=== PATIENT | male | born 1940 | race Caucasian/White ===

== ENCOUNTER 2016-08-19 13:43 | Inpatient (IN) | payer OTHER ==
[~2016-08-19] VITALS: Ht 167.6 cm; Wt 89.2 kg
[~2016-08-19 13:43] MED LIST: ASPI-231 PO; CLOP75TA28 PO; GLIP-115 PO; LEVO75TA6 PO; LISI10TA6 PO; METF-316 PO; METO25TA5 PO; OMEP20CA5 PO; SIMV-8 PO; nitrostat
[2016-08-19 14:33] LABS: Basophils # (auto) 0 uL; Basophils % (auto) 0.4 % (0.0-2.0); DEFINITIVE VIEW TRANSMISSION; Eosinophils # (auto) 0.1 uL; Eosinophils % (auto) 0.6 % (0.0-7.0); Hematocrit 34.8 % (41.0-53.0); Mean Corpuscular Hemoglobin 27.5 pg (28.0-32.0); Mean Corpuscular Hgb Conc. 31.5 g/dL (32.0-36.0); Mean Corpuscular Volume 87.1 fL (80.0-100.0); Mean Platelet Volume 7.9 fL (7.4-10.4); Monocytes # (auto) 0.5 uL; Platelet Count (auto) 410 10^3/uL (140-450); Red Cell Distribution Width 19.4 % (11.6-16.0); White Blood Cell 9.6 10^3/uL (4.4-10.8)
[2016-08-19 14:43] LABS: Albumin 3.4 g/dL (3.4-5.0); Anion Gap 13 (5-15); Calcium 7.9 mg/dL (8.5-10.1); Carbon Dioxide 21 mmol/L (21-32); Chloride 105 mmol/L (98-107); Glucose 100 mg/dL (74-106); Magnesium 2.1 mg/dL (1.6-2.6); Potassium 3.6 mmol/L (3.5-5.1); Sodium 139 mmol/L (136-145)
[2016-08-19 14:46] LABS: Alkaline Phosphatase 136 U/L (45-117); Aspartate Aminotransferase 24 U/L (15-37); BUN/Creatinine Ratio 19.7; Bilirubin, Total 0.6 mg/dL (0.2-1.0); Blood Urea Nitrogen 24 mg/dL (7-18); GFR African American 75 mL/min; GFR Non-African American 62 mL/min
[2016-08-19 16:10] LABS: Partial Thromboplastin Time 26.6 sec (22.64-33.71)
[2016-08-19 16:23] LABS: B-Type Natriuretic Peptide 3039.27 pg/mL (0-100); Temperature: 23.3 C (20.0-25.0)
[2016-08-19 16:36] LABS: INR 1.29 (0.9-1.15); Prothrombin Time 13.3 sec (9.37-12.3)
[2016-08-19] MEDS ORDERED: FUROSEMIDE 40 MG/4 ML VIAL IV ONE (17:00)
[2016-08-19] MEDS ORDERED: MORPHINE SULF INJ 2 MG/ML SYRINGE 1ML IV PRN ×2 (17:30)
[2016-08-19] MEDS ORDERED: TEMAZEPAM 15 MG CAP PO PRN (17:30)
[2016-08-19] MEDS ORDERED: LORazepam 0.5 MG TAB PO PRN (17:30)
[2016-08-19] MEDS ORDERED: PROMETHAZINE HCL 25 MG/ML 1ML IV PRN (17:30)
[2016-08-19] MEDS ORDERED: DEXTROSE (50%) 50ML SYRG IV PRN (17:30)
[2016-08-19] MEDS ORDERED: NITROGLYCERIN 0.4 MG SL TAB SL PRN (17:30)
[2016-08-19] MEDS ORDERED: LACTULOSE 20Gm/30ML SOLN PO PRN (17:30)
[2016-08-19] MEDS ORDERED: ENOXAPARIN SOD 40 MG/0.4 ML SYRINGE SC ONE (17:34)
[2016-08-19 18:55] LABS: Anisocytosis Moderate; Large Platelets FEW; Ovalocytes FEW; Platelet Estimate Adequate
[2016-08-19 18:56] LABS: Stomatocytes Few
[2016-08-19 20:00] VITALS: BP 124/83
[2016-08-19 20:56] LABS: Urine RBC None Seen /hpf (0 - 3)
[2016-08-19 21:12] LABS: Urine Bilirubin Negative (Negative); Urine Blood Negative /uL (Negative); Urine Color Colorless (Yellow); Urine Glucose Normal (Normal); Urine Hyaline Cast FEW /lpf (0 - 2); Urine Ketone Negative (Negative); Urine Nitrite Negative (Negative); Urine Urobilinogen Normal (Negative)
[2016-08-19] MEDS: ATORVASTATIN 20 MG TAB PO SCH (21:54)
[2016-08-19] MEDS: SODIUM CHLOR 0.9% PF (SALINE LOCK) 10ML VIAL IV SCH (21:55)
[2016-08-19] MEDS: CARVEDILOL 3.125 MG TAB PO SCH (21:55)
[2016-08-19] MEDS: InsuLIN REG 1unit/0.01ml Soln (100units/ml) SC SCH (22:00)
[2016-08-19] MEDS ORDERED: glipiZIDE 5 MG TAB PO SCH (22:00)
[2016-08-19] MEDS: ACCU-CHEK COMFORT CURVE STRIP VI SCH (22:03)
[2016-08-19] MEDS ORDERED: METF-312 PO (22:47)
[2016-08-19] MEDS ORDERED: LORA-352 PO (22:47)
[2016-08-19] MEDS: HYDROcodone-ACET 5/325MG TAB PO PRN (23:15)
[2016-08-20 05:46] VITALS: BP 112/75
[2016-08-20 05:59] LABS: Albumin 3.2 g/dL (3.4-5.0); BUN/Creatinine Ratio 19.5; Bilirubin, Total 0.8 mg/dL (0.2-1.0); Calcium 7.9 mg/dL (8.5-10.1); Potassium 3.5 mmol/L (3.5-5.1); Total Protein 6.3 g/dL (6.4-8.2)
[2016-08-20] MEDS: SODIUM CHLOR 0.9% PF (SALINE LOCK) 10ML VIAL IV SCH ×3 (06:13→21:54)
[2016-08-20] MEDS: LEVOTHYROXINE SODIUM 25 MCG TAB PO SCH (06:13)
[2016-08-20] MEDS: ACCU-CHEK COMFORT CURVE STRIP VI SCH ×4 (06:23→21:55)
[2016-08-20] MEDS: InsuLIN REG 1unit/0.01ml Soln (100units/ml) SC SCH ×4 (06:23→21:55)
[2016-08-20] MEDS: glipiZIDE 5 MG TAB PO SCH ×2 (06:24→17:00)
[2016-08-20 06:26] LABS: B-Type Natriuretic Peptide 3603.21 pg/mL (0-100)
[2016-08-20 09:00] VITALS: BP 119/83
[2016-08-20] MEDS ORDERED: ENOXAPARIN SOD 40 MG/0.4 ML SYRINGE SC SCH (10:00)
[2016-08-20] MEDS ORDERED: OMEPRAZOLE 20MG/10ML ORAL SUSP PO SCH (10:00)
[2016-08-20] MEDS ORDERED: FUROSEMIDE 40 MG/4 ML VIAL IV SCH (10:00)
[2016-08-20] MEDS: NITROGLYCERIN 0.2MG/HR TOPICAL PATCH TD SCH (10:02)
[2016-08-20] MEDS: ASPirin 81 mg TAB PO SCH (10:03)
[2016-08-20] MEDS: CLOPIDOGREL BISULFATE 75 MG TAB PO SCH (10:03)
[2016-08-20] MEDS: CARVEDILOL 3.125 MG TAB PO SCH ×2 (10:04→21:55)
[2016-08-20] MEDS: POTASSIUM CHL 20 Meq TABLET PO SCH (10:04)
[2016-08-20] MEDS: LISINOPRIL 10 MG TAB PO SCH (10:04)
[2016-08-20 13:00] VITALS: BP 107/70
[2016-08-20] MEDS: FUROSEMIDE 40 MG/4 ML VIAL IV SCH ×2 (15:38→21:54)
[2016-08-20 16:48] VITALS: BP 113/82
[2016-08-20] MEDS ORDERED: IOHEXOL 350 MG/ML 100ML IJ ONE (17:08)
[2016-08-20] MEDS ORDERED: FURO40TA PO (17:28)
[2016-08-20] MEDS: ACETAMINOPHEN 500 MG TAB PO PRN (19:48)
[2016-08-20] MEDS ORDERED: WARFARIN SODIUM 5 MG TAB PO ONE (21:00)
[2016-08-20] MEDS: ATORVASTATIN 20 MG TAB PO SCH (21:55)
[2016-08-20] MEDS: ENOXAPARIN SOD 100 MG/1 ML SYRINGE SC SCH (21:55)
[2016-08-20 22:21] VITALS: BP 105/65
[2016-08-20] MEDS: HYDROcodone-ACET 5/325MG TAB PO PRN (23:09)
[2016-08-21 05:38] VITALS: BP 100/67
[2016-08-21 05:44] LABS: Basophils # (auto) 0.1 uL; Basophils % (auto) 0.6 % (0.0-2.0); DEFINITIVE VIEW TRANSMISSION; Eosinophils # (auto) 0.1 uL; Eosinophils % (auto) 1.4 % (0.0-7.0); Hematocrit 32.1 % (41.0-53.0); Hemoglobin 10.1 g/dL (13.5-17.5); Lymphocytes # (auto) 1.2 uL; Mean Corpuscular Hemoglobin 27.3 pg (28.0-32.0); Mean Corpuscular Hgb Conc. 31.5 g/dL (32.0-36.0); Mean Corpuscular Volume 86.6 fL (80.0-100.0); Monocytes # (auto) 0.5 uL; Monocytes % (auto) 5.5 % (0.0-12.0); Neutrophils # (auto) 6.6 uL; Neutrophils % (auto) 78.5 % (37.0-80.0); Platelet Count (auto) 321 10^3/uL (140-450); Red Cell Distribution Width 19.6 % (11.6-16.0); White Blood Cell 8.4 10^3/uL (4.4-10.8)
[2016-08-21 06:00] LABS: Partial Thromboplastin Time 33.5 sec (22.64-33.71)
[2016-08-21 06:04] LABS: Potassium 3.3 mmol/L (3.5-5.1)
[2016-08-21] MEDS: FUROSEMIDE 40 MG/4 ML VIAL IV SCH ×3 (06:10→21:58)
[2016-08-21] MEDS: SODIUM CHLOR 0.9% PF (SALINE LOCK) 10ML VIAL IV SCH ×3 (06:10→21:58)
[2016-08-21 06:11] LABS: BUN/Creatinine Ratio 23.5; Calcium 8.1 mg/dL (8.5-10.1)
[2016-08-21 06:14] LABS: INR 1.3 (0.9-1.15); Prothrombin Time 13.4 sec (9.37-12.3)
[2016-08-21] MEDS: InsuLIN REG 1unit/0.01ml Soln (100units/ml) SC SCH ×4 (06:53→21:58)
[2016-08-21] MEDS: ACCU-CHEK COMFORT CURVE STRIP VI SCH ×4 (06:53→21:58)
[2016-08-21] MEDS: glipiZIDE 5 MG TAB PO SCH ×2 (06:53→17:00)
[2016-08-21] MEDS: LEVOTHYROXINE SODIUM 25 MCG TAB PO SCH (06:54)
[2016-08-21 09:00] VITALS: BP 100/66
[2016-08-21] MEDS: CLOPIDOGREL BISULFATE 75 MG TAB PO SCH (09:04)
[2016-08-21] MEDS: ASPirin 81 mg TAB PO SCH (09:04)
[2016-08-21] MEDS: PANTOPRAZOLE 40 MG TAB PO SCH (09:04)
[2016-08-21] MEDS: POTASSIUM CHL 20 Meq TABLET PO SCH (09:04)
[2016-08-21] MEDS: NITROGLYCERIN 0.2MG/HR TOPICAL PATCH TD SCH (09:05)
[2016-08-21] MEDS: ENOXAPARIN SOD 100 MG/1 ML SYRINGE SC SCH ×2 (09:06→21:57)
[2016-08-21] MEDS: LISINOPRIL 10 MG TAB PO SCH (09:06)
[2016-08-21] MEDS: CARVEDILOL 3.125 MG TAB PO SCH ×2 (09:07→21:58)
[2016-08-21 13:00] VITALS: BP 104/54
[2016-08-21 17:00] VITALS: BP 120/68
[2016-08-21] MEDS ORDERED: WARFARIN SODIUM 2.5 MG TAB PO ONE (17:00)
[2016-08-21] MEDS: ATORVASTATIN 20 MG TAB PO SCH (21:57)
[2016-08-21 22:00] VITALS: BP 107/65
[2016-08-22 04:55] VITALS: BP 106/66
[2016-08-22] MEDS: SODIUM CHLOR 0.9% PF (SALINE LOCK) 10ML VIAL IV SCH ×3 (06:07→21:58)
[2016-08-22] MEDS: FUROSEMIDE 40 MG/4 ML VIAL IV SCH ×3 (06:07→21:58)
[2016-08-22] MEDS: LEVOTHYROXINE SODIUM 25 MCG TAB PO SCH (06:09)
[2016-08-22] MEDS: ACCU-CHEK COMFORT CURVE STRIP VI SCH ×4 (06:15→21:59)
[2016-08-22] MEDS: glipiZIDE 5 MG TAB PO SCH ×2 (06:16→16:43)
[2016-08-22] MEDS: InsuLIN REG 1unit/0.01ml Soln (100units/ml) SC SCH ×4 (06:16→21:59)
[2016-08-22 06:30] LABS: BUN/Creatinine Ratio 21.5; Magnesium 1.9 mg/dL (1.6-2.6); Phosphorus 3.8 mg/dL (2.5-4.90); Potassium 3.5 mmol/L (3.5-5.1)
[2016-08-22 06:35] LABS: Basophils # (auto) 0 uL; Basophils % (auto) 0.3 % (0.0-2.0); DEFINITIVE VIEW TRANSMISSION; Eosinophils # (auto) 0.1 uL; Eosinophils % (auto) 1.1 % (0.0-7.0); Hematocrit 31.5 % (41.0-53.0); Lymphocytes # (auto) 1.1 uL; Lymphocytes % (auto) 11.5 % (10.0-50.0); Mean Corpuscular Hemoglobin 27.4 pg (28.0-32.0); Mean Corpuscular Hgb Conc. 31.7 g/dL (32.0-36.0); Mean Corpuscular Volume 86.5 fL (80.0-100.0); Mean Platelet Volume 7.9 fL (7.4-10.4); Monocytes # (auto) 0.5 uL; Monocytes % (auto) 5.1 % (0.0-12.0); Neutrophils # (auto) 7.6 uL; Platelet Count (auto) 338 10^3/uL (140-450); Red Cell Distribution Width 19.6 % (11.6-16.0); White Blood Cell 9.3 10^3/uL (4.4-10.8)
[2016-08-22 06:56] LABS: INR 1.36 (0.9-1.15); Partial Thromboplastin Time 35.9 sec (22.64-33.71)
[2016-08-22 09:00] VITALS: BP 99/55
[2016-08-22] MEDS: ASPirin 81 mg TAB PO SCH (09:25)
[2016-08-22] MEDS: CLOPIDOGREL BISULFATE 75 MG TAB PO SCH (09:25)
[2016-08-22] MEDS: PANTOPRAZOLE 40 MG TAB PO SCH (09:26)
[2016-08-22] MEDS: POTASSIUM CHL 20 Meq TABLET PO SCH (09:26)
[2016-08-22] MEDS: CARVEDILOL 3.125 MG TAB PO SCH ×2 (09:26→21:59)
[2016-08-22] MEDS: ACETAMINOPHEN 500 MG TAB PO PRN (09:26)
[2016-08-22] MEDS: LISINOPRIL 10 MG TAB PO SCH (09:27)
[2016-08-22] MEDS: ENOXAPARIN SOD 100 MG/1 ML SYRINGE SC SCH ×2 (09:27→21:59)
[2016-08-22] MEDS: NITROGLYCERIN 0.2MG/HR TOPICAL PATCH TD SCH (09:27)
[2016-08-22 13:00] VITALS: BP 104/57
[2016-08-22 16:43] VITALS: BP 106/69
[2016-08-22] MEDS ORDERED: WARFARIN SODIUM 2.5 MG TAB PO ONE (17:00)
[2016-08-22 21:47] VITALS: BP 99/61
[2016-08-22] MEDS: ATORVASTATIN 20 MG TAB PO SCH (21:59)
[2016-08-23 05:11] VITALS: BP 104/63
[2016-08-23 05:21] LABS: Basophils # (auto) 0 uL; Basophils % (auto) 0.1 % (0.0-2.0); Eosinophils # (auto) 0.1 uL; Eosinophils % (auto) 1.5 % (0.0-7.0); Hematocrit 33.5 % (41.0-53.0); Hemoglobin 10.6 g/dL (13.5-17.5); Lymphocytes # (auto) 0.8 uL; Lymphocytes % (auto) 8.8 % (10.0-50.0); Mean Corpuscular Hemoglobin 27.3 pg (28.0-32.0); Mean Corpuscular Hgb Conc. 31.6 g/dL (32.0-36.0); Mean Corpuscular Volume 86.2 fL (80.0-100.0); Mean Platelet Volume 7.8 fL (7.4-10.4); Monocytes # (auto) 0.4 uL; Monocytes % (auto) 4.8 % (0.0-12.0); Neutrophils # (auto) 7.6 uL; Neutrophils % (auto) 84.8 % (37.0-80.0); Platelet Count (auto) 332 10^3/uL (140-450); Red Cell Distribution Width 18.7 % (11.6-16.0); White Blood Cell 8.9 10^3/uL (4.4-10.8)
[2016-08-23 05:36] LABS: Partial Thromboplastin Time 40.1 sec (22.64-33.71)
[2016-08-23 05:54] LABS: INR 2.02 (0.9-1.15); Prothrombin Time 20.8 sec (9.37-12.3)
[2016-08-23] MEDS: SODIUM CHLOR 0.9% PF (SALINE LOCK) 10ML VIAL IV SCH ×2 (06:04→13:50)
[2016-08-23] MEDS: LEVOTHYROXINE SODIUM 25 MCG TAB PO SCH (06:05)
[2016-08-23] MEDS: FUROSEMIDE 40 MG/4 ML VIAL IV SCH ×2 (06:08→13:49)
[2016-08-23] MEDS: glipiZIDE 5 MG TAB PO SCH ×2 (06:08→17:00)
[2016-08-23] MEDS: InsuLIN REG 1unit/0.01ml Soln (100units/ml) SC SCH ×3 (06:14→17:00)
[2016-08-23] MEDS: ACCU-CHEK COMFORT CURVE STRIP VI SCH ×3 (06:14→17:11)
[2016-08-23 08:00] VITALS: BP 103/67
[2016-08-23 09:00] VITALS: BP 103/67
[2016-08-23] MEDS: POTASSIUM CHL 20 Meq TABLET PO SCH (09:29)
[2016-08-23] MEDS: CLOPIDOGREL BISULFATE 75 MG TAB PO SCH (09:30)
[2016-08-23] MEDS: CARVEDILOL 3.125 MG TAB PO SCH (09:30)
[2016-08-23] MEDS: ENOXAPARIN SOD 100 MG/1 ML SYRINGE SC SCH (09:30)
[2016-08-23] MEDS: ASPirin 81 mg TAB PO SCH (09:30)
[2016-08-23] MEDS: PANTOPRAZOLE 40 MG TAB PO SCH (09:30)
[2016-08-23] MEDS: NITROGLYCERIN 0.2MG/HR TOPICAL PATCH TD SCH (09:31)
[2016-08-23] MEDS: LISINOPRIL 10 MG TAB PO SCH (09:31)
[2016-08-23 13:00] VITALS: BP 94/59
[2016-08-23] MEDS: ACETAMINOPHEN 500 MG TAB PO PRN (13:50)
[2016-08-23 16:55] VITALS: BP 121/65
[2016-08-23 17:00] VITALS: BP 121/65
[2016-08-23] MEDS ORDERED: WARFARIN SODIUM 2.5 MG TAB PO ONE (17:00)
== END 2016-08-23 19:00 | disposition home health service (06) | DRG 291 ==
LOC: ER 13:43 → WEST WING 13:44 → TELE-WESTW 19:55
PROVIDERS: ADMIT Internal Medicine; ATTEND Internal Medicine
DX: I11.0 Hypertensive heart disease with heart failure (principal); I26.99 Other pulmonary embolism without acute cor pulmonale; I50.43 Acute on chronic combined systolic (congestive) and diastolic (congestive) heart failure; I42.9 Cardiomyopathy, unspecified; I44.7 Left bundle-branch block, unspecified; E03.9 Hypothyroidism, unspecified; D63.8 Anemia in other chronic diseases classified elsewhere; E11.9 Type 2 diabetes mellitus without complications; E66.9 Obesity, unspecified; K21.9 Gastro-esophageal reflux disease without esophagitis; E78.5 Hyperlipidemia, unspecified; I25.10 Atherosclerotic heart disease of native coronary artery without angina pectoris; Z86.73 Personal history of transient ischemic attack (TIA), and cerebral infarction without residual deficits; Z79.82 Long term (current) use of aspirin; I25.2 Old myocardial infarction; Z95.5 Presence of coronary angioplasty implant and graft; Z82.49 Family history of ischemic heart disease and other diseases of the circulatory system; Z83.3 Family history of diabetes mellitus
CPT/HCPCS: 36415; 71010; 71275; 80048; 80053; 80061; 81001; 82550; 82962; 83036; 83735; 83880; 84100; 84443; 84484; 85025; 85379; 85610; 85652; 85730; 86141; 93005; 93970; 94761; 96372; 96374

== ENCOUNTER 2017-01-12 15:09 | Observation (INO) | payer OTHER ==
[~2017-01-12] VITALS: Ht 170.2 cm; Wt 84.4 kg
[~2017-01-12 15:09] MED LIST changes: +FURO40TA PO; -GLIP-115 PO; +LORA-352 PO; -METF-316 PO; +METF-372 PO; -OMEP20CA5 PO; +OMEP20CA74 PO; -nitrostat
[2017-01-12] MEDS ORDERED: SODIUM CHLORIDE 0.9% 1,000 ML IVB ONE (15:32)
[2017-01-12] MEDS ORDERED: HYDROmorphone HCL 2 MG/ML VL IV ONE (15:45)
[2017-01-12] MEDS ORDERED: ONDANSETRON HCL 4 MG/2 ML VIAL IV ONE (15:45)
[2017-01-12] MEDS ORDERED: KETOROLAC TROMETH 30 MG/ML 1ML VIAL IV ONE (15:45)
[2017-01-12 16:37] LABS: Basophils # (auto) 0 uL; Basophils % (auto) 0.4 % (0.0-2.0); CONDITION Y; Eosinophils # (auto) 0.1 uL; Eosinophils % (auto) 1.8 % (0.0-7.0); Hematocrit 35.5 % (41.0-53.0); Hemoglobin 11.7 g/dL (13.5-17.5); Lymphocytes # (auto) 0.9 uL; Lymphocytes % (auto) 15.8 % (10.0-50.0); Mean Corpuscular Hemoglobin 31.2 pg (28.0-32.0); Mean Corpuscular Volume 94.3 fL (80.0-100.0); Monocytes # (auto) 0.4 uL; Monocytes % (auto) 7.7 % (0.0-12.0); Neutrophils % (auto) 74.3 % (37.0-80.0); Platelet Count (auto) 237 10^3/uL (140-450); Red Cell Distribution Width 18.3 % (11.6-16.0); White Blood Cell 5.4 10^3/uL (4.4-10.8)
[2017-01-12 16:46] LABS: INR 2.97 (0.9-1.15); Partial Thromboplastin Time 37.2 sec (22.64-33.71); Prothrombin Time 32.7 sec (9.37-12.3)
[2017-01-12 17:19] LABS: B-Type Natriuretic Peptide 920.04 pg/mL (0-100)
[2017-01-12 17:20] LABS: Temperature: 23.3 C (20.0-25.0)
[2017-01-12 17:22] LABS: Albumin 3.6 g/dL (3.4-5.0); Alkaline Phosphatase 94 U/L (45-117); Amylase 61 U/L (25-115); Anion Gap 10 (5-15); Aspartate Aminotransferase 23 U/L (15-37); BUN/Creatinine Ratio 16.5; Bilirubin, Total 0.5 mg/dL (0.2-1.0); Blood Urea Nitrogen 22 mg/dL (7-18); Calcium 8.1 mg/dL (8.5-10.1); Carbon Dioxide 27 mmol/L (21-32); Chloride 100 mmol/L (98-107); GFR African American 68 mL/min; GFR Non-African American 56 mL/min; Glucose 78 mg/dL (74-106); Magnesium 1.3 mg/dL (1.6-2.6); Potassium 3.8 mmol/L (3.5-5.1); Sodium 137 mmol/L (136-145); Total Protein 7.5 g/dL (6.4-8.2)
[2017-01-12 17:27] VITALS: BP 118/69
== END 2017-01-12 20:19 | disposition home or self-care (01) | DRG 563 ==
LOC: EDBD 15:09 → ER 15:09 → OVERFLOW 15:35 → ER 20:19
PROVIDERS: ADMIT Family Medicine; ATTEND Family Medicine
DX: S29.012A Strain of muscle and tendon of back wall of thorax, initial encounter (principal); I11.0 Hypertensive heart disease with heart failure; I50.9 Heart failure, unspecified; E11.9 Type 2 diabetes mellitus without complications; I25.10 Atherosclerotic heart disease of native coronary artery without angina pectoris; D71 Functional disorders of polymorphonuclear neutrophils; K80.20 Calculus of gallbladder without cholecystitis without obstruction; I25.2 Old myocardial infarction; K57.50 Diverticulosis of both small and large intestine without perforation or abscess without bleeding; I71.4 Abdominal aortic aneurysm, without rupture; Y93.89 Activity, other specified; X58.XXXA Exposure to other specified factors, initial encounter; Y92.89 Other specified places as the place of occurrence of the external cause; Y99.8 Other external cause status; Z86.73 Personal history of transient ischemic attack (TIA), and cerebral infarction without residual deficits; Z82.49 Family history of ischemic heart disease and other diseases of the circulatory system
CPT/HCPCS: 36415; 71020; 74176; 76775; 80053; 82150; 83690; 83735; 83880; 84484; 85025; 85610; 85730; 93005; 96361; 96374; 96375; 99285; G0378; J1885; J2405

== ENCOUNTER 2017-01-19 17:22 | Emergency (ER) | payer OTHER ==
[~2017-01-19] VITALS: Ht 172.7 cm; Wt 113.7 kg
[2017-01-19] MEDS ORDERED: METHOCARBAMOL 500 MG TAB PO ONE (19:15)
[2017-01-19] MEDS ORDERED: HYDROmorphone HCL 2 MG/ML VL IV ONE (19:15)
[2017-01-19] MEDS ORDERED: ONDANSETRON HCL 4 MG/2 ML VIAL IV ONE (19:15)
[2017-01-19] MEDS ORDERED: PROMETHAZINE HCL 25 MG/ML 1ML IV ONE (20:00)
[2017-01-19 21:26] VITALS: BP 120/85
== END 2017-01-19 21:28 | disposition home or self-care (01) ==
LOC: ER 17:22 → EDBD 17:22 → ER 21:28
DX: G89.29 Other chronic pain (principal); M54.5 Low back pain; I25.10 Atherosclerotic heart disease of native coronary artery without angina pectoris; I50.9 Heart failure, unspecified; E11.9 Type 2 diabetes mellitus without complications; I11.0 Hypertensive heart disease with heart failure; I25.2 Old myocardial infarction; E07.9 Disorder of thyroid, unspecified; Z79.899 Other long term (current) drug therapy
CPT/HCPCS: 93005; 96374; 96375; 99284; J1170; J2405; J2550

== ENCOUNTER 2017-07-05 06:47 | Inpatient (IN) | payer OTHER ==
[~2017-07-05] VITALS: Ht 172.7 cm; Wt 89.1 kg
[~2017-07-05 06:47] MED LIST changes: -ASPI-231 PO; +ASPI-266 PO; -FURO40TA PO; +FURO40TA4 PO; -LORA-352 PO; +LORA10CA12 PO; -METF-372 PO; +METF-490 PO; +WARF5TAB PO
[2017-07-05] MEDS ORDERED: VANCOMYCIN HCL 1000 MG VL ONE (07:25)
[2017-07-05] MEDS ORDERED: fentaNYL CITRATE 100 MCG/2 ML VL ONE (07:25)
[2017-07-05] MEDS ORDERED: BACITRACIN INJ 50000 UNIT VIAL ONE (07:26)
[2017-07-05] MEDS ORDERED: VANCOMYCIN 1GM/250ML 250 ML IV ONE ×2 (07:26→09:03)
[2017-07-05] MEDS ORDERED: MIDAZOLAM HCL 1MG/1ML-2 ML VIAL ONE (07:26)
[2017-07-05] MEDS ORDERED: IOHEXOL 350 MG/ML 100ML IJ ONE ×2 (07:29→08:06)
[2017-07-05] MEDS ORDERED: LIDOCAINE 2%HCL (LOCAL ANESTH.) INJ 20ML MDV ONE (07:30)
[2017-07-05] MEDS ORDERED: ceFAZolin 1GM/50ML 50 ML IV ONE ×2 (09:41→09:44)
[2017-07-05] MEDS ORDERED: NITROGLYCERIN 0.4 MG SL TAB SL PRN (10:15)
[2017-07-05] MEDS ORDERED: LORazepam 0.5 MG TAB PO PRN (10:15)
[2017-07-05] MEDS ORDERED: ACETAMINOPHEN 325 MG TAB PO PRN (10:15)
[2017-07-05] MEDS ORDERED: MORPHINE SULFATE 4 MG/ML SYR/VIAL IV PRN (10:15)
[2017-07-05] MEDS ORDERED: HYDROcodone-ACET 5/325MG TAB PO PRN (10:15)
[2017-07-05] MEDS ORDERED: LORATADINE 10 MG TAB PO PRN (10:45)
[2017-07-05 14:45] VITALS: BP 118/75
[2017-07-05 15:29] VITALS: BP 118/75
[2017-07-05] MEDS: ceFAZolin 2GM/100ML 100 ML IV SCH ×2 (15:54→21:53)
[2017-07-05 16:28] VITALS: BP 114/71
[2017-07-05] MEDS ORDERED: PATIENTS OWN MEDICATION (Simvastatin 1 TAB) PO SCH (18:00)
[2017-07-05] MEDS: FUROSEMIDE 40 MG TAB PO SCH (18:01)
[2017-07-05 21:42] VITALS: BP 104/65
[2017-07-05] MEDS: METOPROLOL TARTRATE 25 MG TAB PO SCH (21:55)
[2017-07-05] MEDS ORDERED: PRAVASTATIN SODIUM 20 MG TAB PO SCH (22:00)
[2017-07-06] MEDS: ceFAZolin 2GM/100ML 100 ML IV SCH (04:00)
[2017-07-06 04:37] VITALS: BP 108/76
[2017-07-06] MEDS: FUROSEMIDE 40 MG TAB PO SCH ×2 (06:11→06:13)
[2017-07-06] MEDS ORDERED: LEVOTHYROXINE SODIUM 25 MCG TAB PO SCH (07:00)
[2017-07-06 09:00] VITALS: BP 109/69
[2017-07-06] MEDS: METOPROLOL TARTRATE 25 MG TAB PO SCH (09:32)
[2017-07-06] MEDS ORDERED: OMEPRAZOLE 20MG/10ML ORAL SUSP PO SCH (10:00)
[2017-07-06] MEDS ORDERED: PANTOPRAZOLE 40 MG TAB PO SCH (10:00)
[2017-07-06] MEDS ORDERED: LISINOPRIL 10 MG TAB PO SCH (10:00)
[2017-07-06] MEDS ORDERED: CLOPIDOGREL BISULFATE 75 MG TAB PO SCH (10:00)
[2017-07-06] MEDS ORDERED: LORATADINE 10 MG PO SCH (10:00)
[2017-07-06] MEDS ORDERED: PATIENTS OWN MEDICATION (Levothyroxine Sodium 1 TAB) PO SCH (10:00)
[2017-07-06 13:00] VITALS: BP 78/42
[2017-07-06 13:32] LABS: Basophils # (auto) 0.1 uL; Eosinophils # (auto) 0.1 uL; Eosinophils % (auto) 0.6 % (0.0-7.0); Hematocrit 41.1 % (41.0-53.0); Hemoglobin 13.6 g/dL (13.5-17.5); Lymphocytes # (auto) 0.8 uL; Lymphocytes % (auto) 6.2 % (10.0-50.0); Mean Corpuscular Hemoglobin 32.2 pg (28.0-32.0); Mean Corpuscular Hgb Conc. 33.1 g/dL (32.0-36.0); Mean Corpuscular Volume 97.3 fL (80.0-100.0); Monocytes # (auto) 0.7 uL; Monocytes % (auto) 5.6 % (0.0-12.0); Neutrophils # (auto) 11.4 uL; Neutrophils % (auto) 86.6 % (37.0-80.0); Platelet Count (auto) 314 10^3/uL (140-450); Red Blood Cells 4.22 10^6/uL (4.5-5.90); Red Cell Distribution Width 14.6 % (11.8-14.3); White Blood Cell 13.1 10^3/uL (4.4-10.8)
[2017-07-06 13:48] LABS: Potassium 4.3 mmol/L (3.5-5.1)
[2017-07-06 13:49] LABS: BUN/Creatinine Ratio 13.5; Calcium 8.6 mg/dL (8.5-10.1)
== END 2017-07-06 16:00 | disposition home health service (06) | DRG 227 ==
LOC: CATH 06:47 → TELE-CENTR 06:48
PROVIDERS: ADMIT Specialist; ATTEND Specialist
PROC: 0JH609Z Insertion of Cardiac Resynchronization Defibrillator Pulse Generator into Chest Subcutaneous Tissue and Fascia, Open Approach (ICD-10-PCS; principal; 2017-07-05)
PROC: 02HL3KZ Insertion of Defibrillator Lead into Left Ventricle, Percutaneous Approach (ICD-10-PCS; 2017-07-05)
PROC: 02H63KZ Insertion of Defibrillator Lead into Right Atrium, Percutaneous Approach (ICD-10-PCS; 2017-07-05)
PROC: 02HK3KZ Insertion of Defibrillator Lead into Right Ventricle, Percutaneous Approach (ICD-10-PCS; 2017-07-05)
DX: I25.5 Ischemic cardiomyopathy (principal); N17.9 Acute kidney failure, unspecified; E11.9 Type 2 diabetes mellitus without complications; I11.0 Hypertensive heart disease with heart failure; I50.9 Heart failure, unspecified; D72.829 Elevated white blood cell count, unspecified; E03.9 Hypothyroidism, unspecified; I25.10 Atherosclerotic heart disease of native coronary artery without angina pectoris; Z79.02 Long term (current) use of antithrombotics/antiplatelets; Z79.82 Long term (current) use of aspirin; Z86.711 Personal history of pulmonary embolism; Z98.61 Coronary angioplasty status
CPT/HCPCS: 33249; 36415; 71045; 80048; 85025; 87081; 93005; 99152; J0690; J2250

== ENCOUNTER 2017-10-11 10:02 | Emergency (ER) | payer OTHER ==
[~2017-10-11] VITALS: Ht 172.7 cm; Wt 89.4 kg
[2017-10-11 11:04] LABS: Basophils # (auto) 0 uL; Basophils % (auto) 0.4 % (0.0-2.0); Eosinophils # (auto) 0.1 uL; Eosinophils % (auto) 0.6 % (0.0-7.0); Hematocrit 41.9 % (41.0-53.0); Lymphocytes # (auto) 0.7 uL; Lymphocytes % (auto) 6.7 % (10.0-50.0); Mean Corpuscular Hemoglobin 32.2 pg (28.0-32.0); Mean Corpuscular Hgb Conc. 33.3 g/dL (32.0-36.0); Mean Corpuscular Volume 96.7 fL (80.0-100.0); Monocytes # (auto) 0.6 uL; Monocytes % (auto) 5.8 % (0.0-12.0); Neutrophils # (auto) 8.6 uL; Neutrophils % (auto) 86.5 % (37.0-80.0); Nucleated Red Blood Cells % 0.1 %; Platelet Count (auto) 232 10^3/uL (140-450); Red Blood Cells 4.34 10^6/uL (4.5-5.90); Red Cell Distribution Width 15.5 % (11.8-14.3); White Blood Cell 9.9 10^3/uL (4.4-10.8)
[2017-10-11 11:19] LABS: INR 1.04 (0.9-1.15); Partial Thromboplastin Time 27.3 sec (22.64-33.71); Prothrombin Time 11.3 sec (9.37-12.3)
[2017-10-11 11:27] LABS: Alanine Aminotransferase 17 U/L (16-61); Albumin 3.3 g/dL (3.4-5.0); Anion Gap 8 (5-15); Aspartate Aminotransferase 19 U/L (15-37); BUN/Creatinine Ratio 21.4; Blood Urea Nitrogen 22 mg/dL (7-18); Calcium 8.3 mg/dL (8.5-10.1); Carbon Dioxide 22 mmol/L (21-32); Chloride 108 mmol/L (98-107); GFR African American 91 mL/min; GFR Non-African American 75 mL/min; Glucose 113 mg/dL (74-106); Sodium 138 mmol/L (136-145)
[2017-10-11 11:29] LABS: Alkaline Phosphatase 97 U/L (45-117); Bilirubin, Total 0.4 mg/dL (0.2-1.0); Total Protein 7.6 g/dL (6.4-8.2)
[2017-10-11] MEDS ORDERED: FUROSEMIDE 40 MG/4 ML VIAL IV ONE (12:45)
[2017-10-11] MEDS ORDERED: FUROSEMIDE 40 MG TAB ONE (12:55)
[2017-10-11] MEDS ORDERED: FUROSEMIDE 20 MG TAB PO ONE ×2 (13:00)
[2017-10-11 13:04] VITALS: BP 140/86
== END 2017-10-11 13:04 | disposition home or self-care (01) ==
LOC: ER 10:02
DX: I11.0 Hypertensive heart disease with heart failure (principal); I50.33 Acute on chronic diastolic (congestive) heart failure; I25.10 Atherosclerotic heart disease of native coronary artery without angina pectoris; I50.9 Heart failure, unspecified; E11.9 Type 2 diabetes mellitus without complications; E07.9 Disorder of thyroid, unspecified; Z79.899 Other long term (current) drug therapy; Z95.0 Presence of cardiac pacemaker; Z90.49 Acquired absence of other specified parts of digestive tract
CPT/HCPCS: 29125; 36415; 71045; 73110; 80053; 83880; 84484; 85025; 85610; 85730; 93005; 99291

== ENCOUNTER 2017-11-26 08:41 | Emergency (ER) | payer OTHER ==
[~2017-11-26] VITALS: Ht 175.3 cm; Wt 87.1 kg
[2017-11-26 09:30] VITALS: BP 151/88
[2017-11-26] MEDS ORDERED: HYDROcodone-ACET 10/325MG TAB PO ONE (11:45)
== END 2017-11-26 12:46 | disposition home or self-care (01) ==
LOC: EDBD 08:41 → ER 08:47
DX: M25.552 Pain in left hip (principal); M25.522 Pain in left elbow; M79.642 Pain in left hand; M54.2 Cervicalgia; R11.2 Nausea with vomiting, unspecified; I25.10 Atherosclerotic heart disease of native coronary artery without angina pectoris; I50.9 Heart failure, unspecified; E11.9 Type 2 diabetes mellitus without complications; I11.0 Hypertensive heart disease with heart failure; E07.9 Disorder of thyroid, unspecified; Z95.0 Presence of cardiac pacemaker; Z79.899 Other long term (current) drug therapy; Z90.49 Acquired absence of other specified parts of digestive tract; R42 Dizziness and giddiness; W01.10XA Fall on same level from slipping, tripping and stumbling with subsequent striking against unspecified object, initial encounter; Y93.89 Activity, other specified; Y92.89 Other specified places as the place of occurrence of the external cause; Y99.8 Other external cause status
CPT/HCPCS: 70450; 71045; 73090; 73502